=== PATIENT | male | born 1980 | race Two or more races ===

== ENCOUNTER 2017-09-12 18:30 | Emergency (ER) | payer SELFPAY | END 2017-09-12 20:20 | disposition home or self-care (01) | LOC: ER 18:30 | DX: S82.002A Unspecified fracture of left patella, initial encounter for closed fracture (principal); L03.116 Cellulitis of left lower limb; E11.9 Type 2 diabetes mellitus without complications; I10 Essential (primary) hypertension; X58.XXXA Exposure to other specified factors, initial encounter; Y93.89 Activity, other specified; Y92.89 Other specified places as the place of occurrence of the external cause; Y99.8 Other external cause status | CPT/HCPCS: 29505; 73564; 99284 ==

== ENCOUNTER 2017-09-16 20:54 | Emergency (ER) | payer SELFPAY ==
[2017-09-16 21:48] LABS: ADD MAN DIFF? NO
[2017-09-16 21:53] LABS: BASO % 0 % (0-3); EOS # 0.1 x10^3/uL (0.0-0.7); EOS % 1 % (0-3); HEMATOCRIT 42.4 % (39.0-53.0); LYMPH % 33 % (24-48); MEAN CORPUSCULAR HEMOGLOBIN 32 pg (25-35); MEAN CORPUSCULAR HGB CONC 35 g/dL (31-37); MEAN CORPUSCULAR VOLUME 89 fL (79-100); MONO # 0.5 x10^3/uL (0.0-1.1); MONO % 5 % (0-9); NEUT # 5.5 x10^3uL (1.8-7.7); NEUT % 60 % (31-73); PLATELET COUNT 271 x10^3/uL (140-400); RED BLOOD COUNT 4.77 x10^6/uL (4.30-5.70); RED CELL DISTRIBUTION WIDTH 12.4 % (11.5-14.5); WHITE BLOOD COUNT 9.1 x10^3/uL (4.0-11.0)
[2017-09-16 22:01] LABS: ANION GAP 13 (6-14); BLOOD UREA NITROGEN 14 mg/dL (8-26); BUN/CREATININE RATIO 11 (6-20); CALCIUM 8.4 mg/dL (8.5-10.1); CARBON DIOXIDE 23 mmol/L (21-32); CHLORIDE 102 mmol/L (98-107); CREATININE 1.3 mg/dL (0.7-1.3); GFR 62.1; GLUCOSE 280 mg/dL (70-99); POTASSIUM 4.1 mmol/L (3.5-5.1); SODIUM 138 mmol/L (136-145)
[2017-09-16 22:06] LABS: ALBUMIN 3.7 g/dL (3.4-5.0); ALBUMIN/GLOBULIN RATIO 0.9 (1.0-1.7); ALK PHOS 79 U/L (46-116); ALT (SGPT) 22 U/L (16-63); AST (SGOT) 19 U/L (15-37); TOTAL BILIRUBIN 0.3 mg/dL (0.2-1.0); TOTAL PROTEIN 7.6 g/dL (6.4-8.2)
== END 2017-09-16 22:30 | disposition home or self-care (01) ==
LOC: ER 20:54
DX: L03.116 Cellulitis of left lower limb (principal); E11.9 Type 2 diabetes mellitus without complications; I10 Essential (primary) hypertension
CPT/HCPCS: 36415; 80053; 85025; 99284

== ENCOUNTER 2018-05-14 17:53 | Inpatient (IN) | payer SELFPAY ==
[~2018-05-14] VITALS: Ht 182.9 cm; Wt 117.9 kg
[~2018-05-14 17:53] MED LIST: ATEN25TA PO; CEPH500T PO; GLIP10TA13 PO; IBUP-1060 PO; INSU100V31 SQ; Insulin Detemir SQ; LISI10TA PO; LISI1TAB3 PO; METF500T PO; NAPR500T8 PO; SULF1TAB24 PO
[2018-05-14] MEDS ORDERED: MORPHINE SULFATE 4 MG/ML VIAL. IV ONE (18:45)
[2018-05-14] MEDS ORDERED: FAMOTIDINE 20 MG/2 ML VIAL IVP ONE (18:45)
[2018-05-14] MEDS ORDERED: IV NORMAL SALINE 1000ML BAG 1,000 ML IV ONE ×2 (18:45→20:15)
[2018-05-14] MEDS ORDERED: ASPIRIN 325 MG TABLET PO ONE (18:45)
[2018-05-14 19:05] LABS: BASO % 0 % (0-3); EOS # 0.1 x10^3/uL (0.0-0.7); EOS % 1 % (0-3); HEMATOCRIT 50.6 % (39.0-53.0); HEMOGLOBIN 17.6 g/dL (13.0-17.5); LYMPH # 3.3 x10^3/uL (1.0-4.8); LYMPH % 34 % (24-48); MEAN CORPUSCULAR HEMOGLOBIN 31 pg (25-35); MEAN CORPUSCULAR HGB CONC 35 g/dL (31-37); MEAN CORPUSCULAR VOLUME 88 fL (79-100); MONO # 0.7 x10^3/uL (0.0-1.1); MONO % 7 % (0-9); NEUT # 5.6 x10^3uL (1.8-7.7); NEUT % 57 % (31-73); PLATELET COUNT 252 x10^3/uL (140-400); RED BLOOD COUNT 5.73 x10^6/uL (4.30-5.70); RED CELL DISTRIBUTION WIDTH 12.8 % (11.5-14.5); WHITE BLOOD COUNT 9.8 x10^3/uL (4.0-11.0)
[2018-05-14 19:14] LABS: PROTHROMBIN TIME PATIENT 12.4 SEC (11.7-14.0)
[2018-05-14 19:17] LABS: CALCIUM 9.2 mg/dL (8.5-10.1); CREATININE 1.5 mg/dL (0.7-1.3); GFR 52.4; POTASSIUM 3.3 mmol/L (3.5-5.1)
[2018-05-14 19:19] LABS: D-DIMER 0.27 ug/mlFEU (0.00-0.50)
[2018-05-14 19:23] LABS: ALBUMIN 3.8 g/dL (3.4-5.0); ALBUMIN/GLOBULIN RATIO 0.9 (1.0-1.7); MAGNESIUM 1.7 mg/dL (1.8-2.4); TOTAL BILIRUBIN 0.7 mg/dL (0.2-1.0); TOTAL PROTEIN 8.1 g/dL (6.4-8.2)
[2018-05-14 19:30] LABS: BILIRUBIN,URINE NEGATIVE (NEG); CLARITY,URINE CLEAR; COLOR,URINE YELLOW; NITRITE,URINE NEGATIVE (NEG); PH,URINE 5.5; PROTEIN,URINE >=300 mg/dL (NEG-TRACE); UROBILINOGEN,URINE 0.2 mg/dL (0.2 mg/dL)
[2018-05-14 19:33] LABS: CREATINE KINASE 75 U/L (39-308)
[2018-05-14 19:37] LABS: BARBITURATES NEG (NEG); BENZODIAZEPINES NEG (NEG); CANNABINOIDS NEG (NEG); COCAINE NEG (NEG); METHADONE NEG (NEG); OPIATES POS (NEG); PHENCYCLIDINE NEG (NEG)
[2018-05-14 19:40] LABS: BACTERIA,URINE FEW /HPF (0-FEW); SQUAMOUS EPITHELIAL CELL,UR FEW /LPF
[2018-05-14 19:46] LABS: AMPHETAMINE/METHAMPHETAMINE NEG (NEG)
[2018-05-14] MEDS ORDERED: POTASSIUM CHLORIDE 20 MEQ TABLET.ER. PO ONE (20:15)
[2018-05-14] MEDS ORDERED: INSULIN REGULAR 100 UNIT/ML 3ML VIAL. IV ONE (20:15)
[2018-05-14] MEDS ORDERED: ACETAMINOPHEN 500 MG TABLET PO ONE (21:00)
--- NOTE | 2018-05-14 21:35 | RAD ---
CT ABDOMEN PELVIS WO CONTRAST Indication: Hematuria. Exposure: One or more of the following individualized dose reduction techniques were utilized for this examination: 1. Automated exposure control 2. Adjustment of the mA and/or kV according to patient size 3. Use of iterative reconstruction technique. Comparison: None are available. Contrast: No intravenous contrast given. No oral contrast per request. Evaluation of solid viscera, bowel and vasculature is compromised by the noncontrast technique. Findings: Lung bases are clear. Liver and spleen grossly unremarkable. Pancreas unremarkable. No adrenal mass. No evidence of hydronephrosis or renal calculus. No evidence of ureteric calculus or dilatation. The urinary bladder appears unremarkable. No calcified gallstone. Aorta nonaneurysmal. No definite significant lymph node enlargement. No evidence of bowel obstruction. No evidence of acute colitis. The appendix appears normal. No evidence of significant ascites or evidence of pneumoperitoneum. No evidence of a pelvic mass. Vertebral body height and alignment are intact. IMPRESSION: No evidence of urolithiasis or obstruction. No acute findings. Electronically signed by: Herbert Hernandez MD (05/14/2018 9:31 PM) [facility]
--- NOTE | 2018-05-15 01:08 | PHYS DOC ---
Past Medical History Past Medical History: Diabetes-Type II, Hypertension Past Surgical History: Other Additional Past Surgical Histo: R knee scoped Alcohol Use: Occasionally Drug Use: None Adult General Chief Complaint Chief Complaint: CHEST PAIN HPI HPI Patient is a 37 year old male with history of diabetes type 2, hypertension, who presents to the ED today complaining of a sharp 5 out of 10 intermittent substernal chest pain radiating to the left side of the neck that has been going on for the last 1 week. Patient denies anything exacerbating or making the pain better. He is also complaining of a cough. Patient is also complaining of nausea, vomiting, diarrhea and generalized mild abdominal pain since this morning. Denies any fever. Patient states he does not take his diabetes medicine anymore because he has not followed up with her PCP Review of Systems Review of Systems Constitutional: Denies fever or chills [] Eyes: Denies change in visual acuity, redness, or eye pain [] HENT: Denies nasal congestion or sore throat [] Respiratory: Reports cough, denies shortness of breath [] Cardiovascular: Reports chest pain GI: Reports abdominal pain, nausea, vomiting, diarrhea : Denies dysuria or hematuria [] Musculoskeletal: Denies back pain or joint pain [] Integument: Denies rash or skin lesions [] Neurologic: Denies headache, focal weakness or sensory changes [] All other systems were reviewed and found to be within normal limits, except as documented in this note. Current Medications Current Medications Current Medications Medications (Trade) Dose Ordered Sig/Hawa Start Time Stop Time Status Last Admin Dose Admin Acetaminophen (Tylenol) 1,000 mg 1X ONCE 05/14/18 21:00 05/14/18 21:01 DC 05/14/18 21:25 1,000 MG Aspirin (Emmanuel Aspirin) 325 mg 1X ONCE 05/14/18 18:45 05/14/18 18:46 DC 05/14/18 18:57 325 MG Famotidine (Pepcid Vial) 20 mg 1X ONCE 05/14/18 18:45 05/14/18 18:46 DC 05/14/18 18:58 20 MG Insulin Human Regular (HumuLIN R VIAL) 4 unit 1X ONCE 05/14/18 20:15 05/14/18 20:16 DC 05/14/18 20:46 4 UNIT Morphine Sulfate (Morphine Sulfate) 4 mg 1X ONCE 05/14/18 18:45 05/14/18 18:46 DC 05/14/18 18:59 4 MG Potassium Chloride (Klor-Con) 40 meq 1X ONCE 05/14/18 20:15 05/14/18 20:16 DC 05/14/18 20:49 40 MEQ Sodium Chloride 1,000 ml @ 1,000 mls/hr 1X ONCE 05/14/18 20:15 05/14/18 21:14 DC 05/14/18 20:48 1,000 MLS/HR Allergies Allergies Allergies Coded Allergies Type Severity Reaction Last Updated Verified No Known Drug Allergies 03/15/14 No Physical Exam Physical Exam Constitutional: Well developed, well nourished, no acute distress, non-toxic appearance. [] HENT: Normocephalic, atraumatic, bilateral external ears normal, oropharynx moist, no oral exudates, nose normal. [] Eyes: PERRLA, EOMI, conjunctiva normal, no discharge. [] Neck: Normal range of motion, no tenderness, supple, no stridor. [] Cardiovascular:Heart rate regular rhythm, no murmur [] Lungs & Thorax: Bilateral breath sounds clear to auscultation [] Abdomen: Bowel sounds normal, soft, no tenderness, no masses, no pulsatile masses. [] Skin: Warm, dry, no erythema, no rash. [] Back: No tenderness, no CVA tenderness. [] Extremities: No tenderness, no cyanosis, no clubbing, ROM intact, no edema. [] Neurologic: Alert and oriented X 3, normal motor function, normal sensory function, no focal deficits noted. [] Psychologic: Affect normal, judgement normal, mood normal. [] Current Patient Data Vital Signs Vital Signs Date Time Temp Pulse Resp B/P (MAP) Pulse Ox O2 Delivery O2 Flow Rate FiO2 05/14/18 23:30 87 19 157/111 (126) 98 Room Air 05/14/18 18:40 97.8 97.8 Lab Values Laboratory Tests Test 05/14/18 18:48 05/14/18 19:17 05/14/18 20:41 05/14/18 23:18 White Blood Count 9.8 x10^3/uL (4.0-11.0) Red Blood Count 5.73 x10^6/uL (4.30-5.70) H Hemoglobin 17.6 g/dL (13.0-17.5) H Hematocrit 50.6 % (39.0-53.0) Mean Corpuscular Volume 88 fL (79-100) Mean Corpuscular Hemoglobin 31 pg (25-35) Mean Corpuscular Hemoglobin Concent 35 g/dL (31-37) Red Cell Distribution Width 12.8 % (11.5-14.5) Platelet Count 252 x10^3/uL (140-400) Neutrophils (%) (Auto) 57 % (31-73) Lymphocytes (%) (Auto) 34 % (24-48) Monocytes (%) (Auto) 7 % (0-9) Eosinophils (%) (Auto) 1 % (0-3) Basophils (%) (Auto) 0 % (0-3) Neutrophils # (Auto) 5.6 x10^3uL (1.8-7.7) Lymphocytes # (Auto) 3.3 x10^3/uL (1.0-4.8) Monocytes # (Auto) 0.7 x10^3/uL (0.0-1.1) Eosinophils # (Auto) 0.1 x10^3/uL (0.0-0.7) Basophils # (Auto) 0.0 x10^3/uL (0.0-0.2) Prothrombin Time 12.4 SEC (11.7-14.0) Prothrombin Time INR 1.0 (0.8-1.1) D-Dimer (Reena) 0.27 ug/mlFEU (0.00-0.50) Sodium Level 135 mmol/L (136-145) L Potassium Level 3.3 mmol/L (3.5-5.1) L Chloride Level 95 mmol/L (98-107) L Carbon Dioxide Level 26 mmol/L (21-32) Anion Gap 14 (6-14) Blood Urea Nitrogen 23 mg/dL (8-26) Creatinine 1.5 mg/dL (0.7-1.3) H Estimated GFR (Cockcroft-Gault) 52.4 BUN/Creatinine Ratio 15 (6-20) Glucose Level 289 mg/dL (70-99) H Calcium Level 9.2 mg/dL (8.5-10.1) Magnesium Level 1.7 mg/dL (1.8-2.4) L Total Bilirubin 0.7 mg/dL (0.2-1.0) Aspartate Amino Transferase (AST) 19 U/L (15-37) Alanine Aminotransferase (ALT) 27 U/L (16-63) Alkaline Phosphatase 89 U/L (46-116) Creatine Kinase 75 U/L (39-308) Creatine Kinase MB (Mass) < 0.5 ng/mL (0.0-3.6) Creatine Kinase MB Relative Index % (0-4) Troponin I Quantitative 0.021 ng/mL (0.000-0.055) BM-Vqp-S-Type Natriuretic Peptide 30 pg/mL (0-124) Total Protein 8.1 g/dL (6.4-8.2) Albumin 3.8 g/dL (3.4-5.0) Albumin/Globulin Ratio 0.9 (1.0-1.7) L Lipase 136 U/L (73-393) Thyroid Stimulating Hormone (TSH) 2.216 uIU/mL (0.358-3.74) Urine Collection Type Unknown Urine Color Yellow Urine Clarity Clear Urine pH 5.5 Urine Specific [place] >=1.030 Urine Protein >=300 mg/dL (NEG-TRACE) Urine Glucose (UA) >=1000 mg/dL (NEG) Urine Ketones (Stick) Trace mg/dL (NEG) Urine Blood Moderate (NEG) Urine Nitrite Negative (NEG) Urine Bilirubin Negative (NEG) Urine Urobilinogen Dipstick 0.2 mg/dL (0.2 mg/dL) Urine Leukocyte Esterase Negative (NEG) Urine RBC 11-20 /HPF (0-2) Urine WBC 1-4 /HPF (0-4) Urine Squamous Epithelial Cells Few /LPF Urine Bacteria Few /HPF (0-FEW) Urine Mucus Marked /LPF Urine Opiates Screen Pos (NEG) Urine Methadone Screen Neg (NEG) Urine Barbiturates Neg (NEG) Urine Phencyclidine Screen Neg (NEG) Urine Amphetamine/Methamphetamine Neg (NEG) Urine Benzodiazepines Screen Neg (NEG) Urine Cocaine Screen Neg (NEG) Urine Cannabinoids Screen Neg (NEG) Urine Ethyl Alcohol Neg (NEG) Glucose (Fingerstick) 234 mg/dL (70-99) H 241 mg/dL (70-99) H Laboratory Tests 05/14/18 18:48 Laboratory Tests 05/14/18 18:48 EKG EKG [] Radiology/Procedures Radiology/Procedures [] Course & Med Decision Making Course & Med Decision Making Pertinent Labs and Imaging studies reviewed. (See chart for details) This is a 37-year-old male patient with history of diabetes type 2, hypertension , presenting to the ED today complaining of chest pain for one week, abdominal pain nausea vomiting and diarrhea that began today. CT of the abdomen and pelvic is negative for any acute findings. EKG was negative, troponin is negative, d-dimer is normal. CMP with glucose of 289, creatinine 1.5 BUN 23. Patient denies any previous history of renal failure. Heart score 2 Patient will be admitted. IV fluids were started. Insulin sliding scale as ordered. Dr. Benitez will give report to Dr. Pritchett in [place] Disclaimer Dragon Disclaimer This electronic medical record was generated, in whole or in part, using a voice recognition dictation system. Departure Departure Impression: Primary Impression: Chest pain Additional Impressions: Hyperglycemia Acute on chronic renal failure Disposition: ADMITTED INPATIENT Condition: STABLE Referrals: [facility] TECHNICIAN (PCP) Problem Qualifiers Primary Impression: Chest pain Chest pain type: unspecified Qualified Codes: R07.9 - Chest pain, unspecified Additional Impressions: Acute on chronic renal failure Acute renal failure type: unspecified Chronic kidney disease stage: unspecified stage Qualified Codes: N17.9 - Acute kidney failure, unspecified; N18.9 - Chronic kidney disease, unspecified GERALD ROBLERO APRN May 15, 2018 01:08
[2018-05-15] MEDS ORDERED: ACETAMINOPHEN 325 MG TABLET. PO PRN (01:30)
[2018-05-15] MEDS ORDERED: NITROGLYCERIN SUBLINGUAL 0.4 MG BOTTLE OF 25. SL PRN (01:30)
[2018-05-15] MEDS ORDERED: DEXTROSE 50% 25 GM / 50ML DISP.SYRIN. IV PRN (01:30)
[2018-05-15] MEDS ORDERED: MORPHINE SULFATE 4 MG/ML VIAL. IV PRN (01:30)
[2018-05-15] MEDS ORDERED: ONDANSETRON PF 4 MG/2 ML VIAL. IV PRN (01:30)
[2018-05-15] MEDS ORDERED: IV NORMAL SALINE 1000ML BAG 1,000 ML IV ONE (01:30)
--- NOTE | 2018-05-15 01:37 | NUR ---
The patient, JUANIS BYRD, 37 y/o, M admitted by AIDA ZULUAGA MD, was given written information regarding hospital policies, unit procedures and contact persons. Valuables were checked and left with him.
[2018-05-15 02:00] VITALS: BP 151/108
[2018-05-15 07:00] VITALS: BP 157/116
[2018-05-15] MEDS ORDERED: LISI-334 PO (07:24)
[2018-05-15] MEDS ORDERED: IBUP-1060 PO (07:24)
--- NOTE | 2018-05-15 07:27 | EKG ---
[facility] [address] [place] [address] Test Date: 2018-05-14 Test Time: 18:02:38 Pat Name: JUANIS BYRD Department: Room: 526 1 Gender: M Chief Lifestyle Officer: : 1980 Requested By: GERALD ROBLERO Order Number: [id number] Reading MD: Nader Purvis MD Measurements Intervals [place] Rate: 98 P: 38 IA: 158 QRS: 12 QRSD: 114 T: 147 QT: 356 QTc: 456 Interpretive Statements SINUS RHYTHM NON-SPECIFIC ST/T CHANGES Electronically Signed On 05-19-2018 9:47:09 [employer] by Nader Purvis MD
[2018-05-15] MEDS: INSULIN LISPRO 300 UNITS/3 ML INSULN.PEN. SQ SCH ×3 (08:00→16:56)
[2018-05-15 11:00] VITALS: BP 147/107
--- NOTE | 2018-05-15 14:24 | PDOC2 ---
CONSULT Date of Consult Date of Consult DATE: 05/15/18 TIME: 14:16 Reason for Consult Reason for Consult: Chest pain Referring Physician Referring Physician: Dr. Pritchett Identification/Chief Complaint Chief Complaint Chest pain Source Source: Chart review, Patient History of Present Illness Reason for Visit: The patient is a 37-year-old obese male who was seen in the emergency room for episodes of substernal chest pain over the past week. This appeared to be mildly increased with exertion. Patient also had issues with mild abdominal pain. Initial workup included a mildly elevated troponin at 0.051 and in EKG with nonspecific ST segment changes that are somewhat suspicious for ischemia. Additionally the patient has diabetes but has not been taking his medications. Hemoglobin A1c is elevated 11.6. Overnight the patient has been feeling better. CT scan of the abdomen and pelvis that showed no acute changes. He continues to have mild chest discomfort today. Past Medical History Cardiovascular: HTN, Hyperlipidemia Endocrine: Diabetes Past Surgical History Past Surgical History: No pertinent history Family History Family History: Hypertension Social History No ALCOHOL: rare Current Problem List Problem List Problems Medical Problems: (1) Acute on chronic renal failure Status: Acute (2) Hyperglycemia Status: Acute Current Medications Current Medications Current Medications Aspirin (Emmanuel Aspirin) 325 mg 1X ONCE PO Last administered on 05/14/18at 18:57 ; Start 05/14/18 at 18:45; Stop 05/14/18 at 18:46; Status DC Morphine Sulfate (Morphine Sulfate) 4 mg 1X ONCE IV Last administered on 18:59; Start 05/14/18 at 18:45; Stop 05/14/18 at 18:46; Status DC Famotidine (Pepcid Vial) 20 mg 1X ONCE IVP Last administered on 05/14/18at 18:58 ; Start 05/14/18 at 18:45; Stop 05/14/18 at 18:46; Status DC Sodium Chloride 1,000 ml @ 1,000 mls/hr 1X ONCE IV Last administered on at 18:53; Start 05/14/18 at 18:45; Stop 05/14/18 at 19:44; Status DC Sodium Chloride 1,000 ml @ 1,000 mls/hr 1X ONCE IV Last administered on at 20:48; Start 05/14/18 at 20:15; Stop 05/14/18 at 21:14; Status DC Insulin Human Regular (HumuLIN R VIAL) 4 unit 1X ONCE IV Last administered on 05/14/18at 20:46; Start 05/14/18 at 20:15; Stop 05/14/18 at 20:16; Status DC Potassium Chloride (Klor-Con) 40 meq 1X ONCE PO Last administered on 05/14/18at 20:49; Start 05/14/18 at 20:15; Stop 05/14/18 at 20:16; Status DC Acetaminophen (Tylenol) 1,000 mg 1X ONCE PO Last administered on 05/14/18at 21: 25; Start 05/14/18 at 21:00; Stop 05/14/18 at 21:01; Status DC Ondansetron HCl (Zofran) 4 mg PRN Q8HRS PRN IV NAUSEA/VOMITING; Start 05/15/18 at 01:30; Stop 05/16/18 at 01:29 Morphine Sulfate (Morphine Sulfate) 2 mg PRN Q2HR PRN IV PAIN; Start 05/15/18 at 01:30; Stop 05/16/18 at 01:29 Acetaminophen (Tylenol) 650 mg PRN Q4HRS PRN PO FEVER Last administered on 05/15at 02:33; Start 05/15/18 at 01:30; Stop 05/16/18 at 01:29 Nitroglycerin (Nitrostat) 0.4 mg PRN Q5MIN PRN SL CHEST PAIN; Start 05/15/18 at 01:30; Stop 05/16/18 at 01:29 Insulin Human Lispro (HumaLOG) 0-5 UNITS TIDWMEALS SQ Last administered on 05/15at 12:04; Start 05/15/18 at 08:00 Dextrose (Dextrose 50%-Water Syringe) 12.5 gm PRN Q15MIN PRN IV SEE COMMENTS; Start 05/15/18 at 01:30 Sodium Chloride 1,000 ml @ 125 mls/hr 1X ONCE IV Last administered on at 02:31; Start 05/15/18 at 01:30; Stop 05/15/18 at 09:29; Status DC Lisinopril (Prinivil) 20 mg DAILY PO ; Start 05/15/18 at 14:00 Active Scripts Active Glucophage (Metformin Hcl) 500 Mg Tablet 500 Mg PO BIDWMEALS Reported Ibuprofen 800 Mg Tablet 800 Mg PO PRN Q8HRS PRN Lisinopril 20 Mg Tablet 1 Tab PO DAILY Allergies Allergies: Coded Allergies: No Known Drug Allergies (Unverified , 03/15/14) ROS General: YES: Fatigue Respiratory: YES: SOB with excertion Cardiovascular: yes Chest Pain Physical Exam General: mild distress HEENT: Atraumatic Lungs: Clear to auscultation Heart: Regular rate Abdomen: Normal bowel sounds Vitals VITALS Vital Signs Date Time Temp Pulse Resp B/P (MAP) Pulse Ox O2 Delivery O2 Flow Rate FiO2 05/15/18 11:00 97.9 80 17 147/107 (120) 96 Room Air 97.9 Labs Labs Laboratory Tests Test 05/14/18 18:48 05/14/18 19:17 05/14/18 20:41 05/14/18 23:18 White Blood Count 9.8 x10^3/uL (4.0-11.0) Red Blood Count 5.73 x10^6/uL (4.30-5.70) Hemoglobin 17.6 g/dL (13.0-17.5) Hematocrit 50.6 % (39.0-53.0) Mean Corpuscular Volume 88 fL (79-100) Mean Corpuscular Hemoglobin 31 pg (25-35) Mean Corpuscular Hemoglobin Concent 35 g/dL (31-37) Red Cell Distribution Width 12.8 % (11.5-14.5) Platelet Count 252 x10^3/uL (140-400) Neutrophils (%) (Auto) 57 % (31-73) Lymphocytes (%) (Auto) 34 % (24-48) Monocytes (%) (Auto) 7 % (0-9) Eosinophils (%) (Auto) 1 % (0-3) Basophils (%) (Auto) 0 % (0-3) Neutrophils # (Auto) 5.6 x10^3uL (1.8-7.7) Lymphocytes # (Auto) 3.3 x10^3/uL (1.0-4.8) Monocytes # (Auto) 0.7 x10^3/uL (0.0-1.1) Eosinophils # (Auto) 0.1 x10^3/uL (0.0-0.7) Basophils # (Auto) 0.0 x10^3/uL (0.0-0.2) Prothrombin Time 12.4 SEC (11.7-14.0) Prothromb Time International Ratio 1.0 (0.8-1.1) D-Dimer (Reena) 0.27 ug/mlFEU (0.00-0.50) Sodium Level 135 mmol/L (136-145) Potassium Level 3.3 mmol/L (3.5-5.1) Chloride Level 95 mmol/L (98-107) Carbon Dioxide Level 26 mmol/L (21-32) Anion Gap 14 (6-14) Blood Urea Nitrogen 23 mg/dL (8-26) Creatinine 1.5 mg/dL (0.7-1.3) Estimated GFR (Cockcroft-Gault) 52.4 BUN/Creatinine Ratio 15 (6-20) Glucose Level 289 mg/dL (70-99) Calcium Level 9.2 mg/dL (8.5-10.1) Magnesium Level 1.7 mg/dL (1.8-2.4) Total Bilirubin 0.7 mg/dL (0.2-1.0) Aspartate Amino Transf (AST/SGOT) 19 U/L (15-37) Alanine Aminotransferase (ALT/SGPT) 27 U/L (16-63) Alkaline Phosphatase 89 U/L (46-116) Creatine Kinase 75 U/L (39-308) Creatine Kinase MB (Mass) < 0.5 ng/mL (0.0-3.6) Creatine Kinase MB Relative Index % (0-4) Troponin I Quantitative 0.021 ng/mL (0.000-0.055) BO-Npx-Z-Type Natriuretic Peptide 30 pg/mL (0-124) Total Protein 8.1 g/dL (6.4-8.2) Albumin 3.8 g/dL (3.4-5.0) Albumin/Globulin Ratio 0.9 (1.0-1.7) Lipase 136 U/L (73-393) Thyroid Stimulating Hormone (TSH) 2.216 uIU/mL (0.358-3.74) Urine Collection Type Unknown Urine Color Yellow Urine Clarity Clear Urine pH 5.5 Urine Specific [place] >=1.030 Urine Protein >=300 mg/dL (NEG-TRACE) Urine Glucose (UA) >=1000 mg/dL (NEG) Urine Ketones (Stick) Trace mg/dL (NEG) Urine Blood Moderate (NEG) Urine Nitrite Negative (NEG) Urine Bilirubin Negative (NEG) Urine Urobilinogen Dipstick 0.2 mg/dL (0.2 mg/dL) Urine Leukocyte Esterase Negative (NEG) Urine RBC 11-20 /HPF (0-2) Urine WBC 1-4 /HPF (0-4) Urine Squamous Epithelial Cells Few /LPF Urine Bacteria Few /HPF (0-FEW) Urine Mucus Marked /LPF Urine Opiates Screen Pos (NEG) Urine Methadone Screen Neg (NEG) Urine Barbiturates Neg (NEG) Urine Phencyclidine Screen Neg (NEG) Urine Amphetamine/Methamphetamine Neg (NEG) Urine Benzodiazepines Screen Neg (NEG) Urine Cocaine Screen Neg (NEG) Urine Cannabinoids Screen Neg (NEG) Urine Ethyl Alcohol Neg (NEG) Glucose (Fingerstick) 234 mg/dL (70-99) 241 mg/dL (70-99) Test 05/15/18 01:30 05/15/18 05:40 05/15/18 07:52 05/15/18 11:28 Troponin I Quantitative 0.034 ng/mL (0.000-0.055) 0.051 ng/mL (0.000-0.055) Glucose (Fingerstick) 214 mg/dL (70-99) 190 mg/dL (70-99) Laboratory Tests Test 05/14/18 18:48 05/14/18 19:17 05/14/18 20:41 05/14/18 23:18 White Blood Count 9.8 x10^3/uL (4.0-11.0) Red Blood Count 5.73 x10^6/uL (4.30-5.70) Hemoglobin 17.6 g/dL (13.0-17.5) Hematocrit 50.6 % (39.0-53.0) Mean Corpuscular Volume 88 fL (79-100) Mean Corpuscular Hemoglobin 31 pg (25-35) Mean Corpuscular Hemoglobin Concent 35 g/dL (31-37) Red Cell Distribution Width 12.8 % (11.5-14.5) Platelet Count 252 x10^3/uL (140-400) Neutrophils (%) (Auto) 57 % (31-73) Lymphocytes (%) (Auto) 34 % (24-48) Monocytes (%) (Auto) 7 % (0-9) Eosinophils (%) (Auto) 1 % (0-3) Basophils (%) (Auto) 0 % (0-3) Neutrophils # (Auto) 5.6 x10^3uL (1.8-7.7) Lymphocytes # (Auto) 3.3 x10^3/uL (1.0-4.8) Monocytes # (Auto) 0.7 x10^3/uL (0.0-1.1) Eosinophils # (Auto) 0.1 x10^3/uL (0.0-0.7) Basophils # (Auto) 0.0 x10^3/uL (0.0-0.2) Prothrombin Time 12.4 SEC (11.7-14.0) Prothromb Time International Ratio 1.0 (0.8-1.1) D-Dimer (Reena) 0.27 ug/mlFEU (0.00-0.50) Sodium Level 135 mmol/L (136-145) Potassium Level 3.3 mmol/L (3.5-5.1) Chloride Level 95 mmol/L (98-107) Carbon Dioxide Level 26 mmol/L (21-32) Anion Gap 14 (6-14) Blood Urea Nitrogen 23 mg/dL (8-26) Creatinine 1.5 mg/dL (0.7-1.3) Estimated GFR (Cockcroft-Gault) 52.4 BUN/Creatinine Ratio 15 (6-20) Glucose Level 289 mg/dL (70-99) Calcium Level 9.2 mg/dL (8.5-10.1) Magnesium Level 1.7 mg/dL (1.8-2.4) Total Bilirubin 0.7 mg/dL (0.2-1.0) Aspartate Amino Transf (AST/SGOT) 19 U/L (15-37) Alanine Aminotransferase (ALT/SGPT) 27 U/L (16-63) Alkaline Phosphatase 89 U/L (46-116) Creatine Kinase 75 U/L (39-308) Creatine Kinase MB (Mass) < 0.5 ng/mL (0.0-3.6) Creatine Kinase MB Relative Index % (0-4) Troponin I Quantitative 0.021 ng/mL (0.000-0.055) WO-Mwf-T-Type Natriuretic Peptide 30 pg/mL (0-124) Total Protein 8.1 g/dL (6.4-8.2) Albumin 3.8 g/dL (3.4-5.0) Albumin/Globulin Ratio 0.9 (1.0-1.7) Lipase 136 U/L (73-393) Thyroid Stimulating Hormone (TSH) 2.216 uIU/mL (0.358-3.74) Urine Collection Type Unknown Urine Color Yellow Urine Clarity Clear Urine pH 5.5 Urine Specific [place] >=1.030 Urine Protein >=300 mg/dL (NEG-TRACE) Urine Glucose (UA) >=1000 mg/dL (NEG) Urine Ketones (Stick) Trace mg/dL (NEG) Urine Blood Moderate (NEG) Urine Nitrite Negative (NEG) Urine Bilirubin Negative (NEG) Urine Urobilinogen Dipstick 0.2 mg/dL (0.2 mg/dL) Urine Leukocyte Esterase Negative (NEG) Urine RBC 11-20 /HPF (0-2) Urine WBC 1-4 /HPF (0-4) Urine Squamous Epithelial Cells Few /LPF Urine Bacteria Few /HPF (0-FEW) Urine Mucus Marked /LPF Urine Opiates Screen Pos (NEG) Urine Methadone Screen Neg (NEG) Urine Barbiturates Neg (NEG) Urine Phencyclidine Screen Neg (NEG) Urine Amphetamine/Methamphetamine Neg (NEG) Urine Benzodiazepines Screen Neg (NEG) Urine Cocaine Screen Neg (NEG) Urine Cannabinoids Screen Neg (NEG) Urine Ethyl Alcohol Neg (NEG) Glucose (Fingerstick) 234 mg/dL (70-99) 241 mg/dL (70-99) Test 05/15/18 01:30 05/15/18 05:40 05/15/18 07:52 05/15/18 11:28 Troponin I Quantitative 0.034 ng/mL (0.000-0.055) 0.051 ng/mL (0.000-0.055) Glucose (Fingerstick) 214 mg/dL (70-99) 190 mg/dL (70-99) Images Images CT scan of the abdomen and pelvis shows no acute changes. Assessment/Plan Assessment/Plan 1. Chest pain. The patient reports one week of episodic chest discomfort as above. Pain has significantly improved but he still has occasional episodes. His EKG shows ST segment changes that are nonspecific but are suggestive of possible ischemia. Troponin is 0.051. He has multiple risk factors including hypertension, poorly controlled diabetes and probable hyperlipidemia. In this setting will continue medical treatment. We'll proceed with MPI testing to exclude significant coronary artery disease. 2. Hypertension. Blood pressures under better control. Will continue to monitor and adjust medications as needed. 3. Diabetes mellitus. Patient has been noncompliant with his medications. He is poorly controlled. As per the primary service. 4. Elevated creatinine at 1.5. Will continue to monitor. 5. Obesity. Discussed with the patient. Thank you for allowing us to participate in the care of your patient. SRINIVAS CURTIS MD May 15, 2018 14:23
[2018-05-15] MEDS: LISINOPRIL 20 MG TABLET PO SCH (14:31)
[2018-05-15 15:00] VITALS: BP 154/102
--- NOTE | 2018-05-15 15:54 | PDOC1 ---
History and Physical Date of Admission Date of Admission 05/15/2018 Identification/Chief Complaint Chief Complaint My chest hurts Problems: (1) Chest pain Source Source: Chart review, Patient History of Present Illness History of Present Illness Patient is a 37-year-old gentleman with classical history of hypertension diabetes who was in his usual state of health until the day prior to his admission when he complained of worsening chest discomfort. Story dates back 1 week when while watching TV the patient presented precordial discomfort. The patient describes the pain as a sharp sensation 7 out of 10 in intensity that has been intermittent and lasting less than 10 minutes patient denies diaphoresis no sensation of impending doom no nausea no vomiting on previous events but the day prior he did percent one episode of emesis along with chest discomfort reason why he decided to come to the emergency department for further evaluation treatment. His workup in the emergency department has yielded negative results. Given his risk factors patient is being admitted for further risk stratification and further evaluation. At the time of my note the patient is in no apparent distress but nevertheless he is somewhat aggravated that he has not received his antihypertensive therapy. The patient does acknowledge that he has been eating more salt than usual and see his blood pressure has been higher than normal. He only takes one agent for hypertension reassurance has been provided and the plan of care explained in detail to the patient. No recent cold-like symptoms infections cough sputum production or pleurisy was reported no trauma to the chest Past Medical History Cardiovascular: HTN, Hyperlipidemia Endocrine: Diabetes Past Surgical History Past Surgical History: No pertinent history Family History Family History: Hypertension Social History Smoke: No ALCOHOL: rare Current Problem List Problem List Problems Medical Problems: (1) Acute on chronic renal failure Status: Acute (2) Hyperglycemia Status: Acute Current Medications Current Medications Current Medications Medications (Trade) Dose Ordered Sig/Hawa Start Time Stop Time Status Last Admin Dose Admin Acetaminophen (Tylenol) 650 mg PRN Q4HRS PRN 05/15/18 01:30 05/16/18 01:29 05/15/18 02:33 650 MG Aspirin (Emmanuel Aspirin) 325 mg 1X ONCE 05/14/18 18:45 05/14/18 18:46 DC 05/14/18 18:57 325 MG Dextrose (Dextrose 50%-Water Syringe) 12.5 gm PRN Q15MIN PRN 05/15/18 01:30 Famotidine (Pepcid Vial) 20 mg 1X ONCE 05/14/18 18:45 05/14/18 18:46 DC 05/14/18 18:58 20 MG Insulin Human Lispro (HumaLOG) 0-5 UNITS TIDWMEALS 05/15/18 08:00 05/15/18 12:04 2 UNITS Insulin Human Regular (HumuLIN R VIAL) 4 unit 1X ONCE 05/14/18 20:15 05/14/18 20:16 DC 05/14/18 20:46 4 UNIT Lisinopril (Prinivil) 20 mg DAILY 05/15/18 14:00 05/15/18 14:31 20 MG Morphine Sulfate (Morphine Sulfate) 2 mg PRN Q2HR PRN 05/15/18 01:30 05/16/18 01:29 Nitroglycerin (Nitrostat) 0.4 mg PRN Q5MIN PRN 05/15/18 01:30 05/16/18 01:29 Ondansetron HCl (Zofran) 4 mg PRN Q8HRS PRN 05/15/18 01:30 05/16/18 01:29 Potassium Chloride (Klor-Con) 40 meq 1X ONCE 05/14/18 20:15 05/14/18 20:16 DC 05/14/18 20:49 40 MEQ Sodium Chloride 1,000 ml @ 125 mls/hr 1X ONCE 05/15/18 01:30 05/15/18 09:29 DC 05/15/18 02:31 125 MLS/HR Allergies Allergies Allergies Coded Allergies Type Severity Reaction Last Updated Verified No Known Drug Allergies 03/15/14 No ROS Review of System CONSTITUTIONAL: No fever or chills EYES: No recent changes SKIN: No rash or itching CARDIOVASCULAR: No chest pain, syncope, palpitations, or edema RESPIRATORY: No SOB or cough GASTROINTESTINAL: No nausea, vomiting or abdominal pain NEUROLOGICAL: No headaches or weakness ENDOCRINE: No cold or heat intolerance GENITOURINARY: No urgency or frequency of urination MUSCULOSKELETAL: No back pain or joint pain LYMPHATICS: No enlarged lymph nodes PSYCHIATRIC: No anxiety or depression Physical Exam Physical Exam GEN.: No apparent distress. Alert and oriented. HEENT: Head is normocephalic, atraumatic NECK: Supple. LUNGS: Clear to auscultation. HEART: RRR, S1, S2 present. Peripheral pulses intact ABDOMEN: Soft, nontender. Positive bowel sounds. EXTREMITIES: Without any cyanosis. NEUROLOGIC: Normal speech, normal tone PSYCHIATRIC: Normal affect, normal mood. SKIN: No ulcerations Vitals Vitals Vital Signs Date Time Temp Pulse Resp B/P (MAP) Pulse Ox O2 Delivery O2 Flow Rate FiO2 05/15/18 15:00 97.5 74 18 154/102 (119) 96 Room Air 97.5 Labs Labs Laboratory Tests Test 05/14/18 18:48 05/14/18 19:17 05/14/18 20:41 05/14/18 23:18 White Blood Count 9.8 x10^3/uL (4.0-11.0) Red Blood Count 5.73 x10^6/uL (4.30-5.70) Hemoglobin 17.6 g/dL (13.0-17.5) Hematocrit 50.6 % (39.0-53.0) Mean Corpuscular Volume 88 fL (79-100) Mean Corpuscular Hemoglobin 31 pg (25-35) Mean Corpuscular Hemoglobin Concent 35 g/dL (31-37) Red Cell Distribution Width 12.8 % (11.5-14.5) Platelet Count 252 x10^3/uL (140-400) Neutrophils (%) (Auto) 57 % (31-73) Lymphocytes (%) (Auto) 34 % (24-48) Monocytes (%) (Auto) 7 % (0-9) Eosinophils (%) (Auto) 1 % (0-3) Basophils (%) (Auto) 0 % (0-3) Neutrophils # (Auto) 5.6 x10^3uL (1.8-7.7) Lymphocytes # (Auto) 3.3 x10^3/uL (1.0-4.8) Monocytes # (Auto) 0.7 x10^3/uL (0.0-1.1) Eosinophils # (Auto) 0.1 x10^3/uL (0.0-0.7) Basophils # (Auto) 0.0 x10^3/uL (0.0-0.2) Prothrombin Time 12.4 SEC (11.7-14.0) Prothromb Time International Ratio 1.0 (0.8-1.1) D-Dimer (Reena) 0.27 ug/mlFEU (0.00-0.50) Sodium Level 135 mmol/L (136-145) Potassium Level 3.3 mmol/L (3.5-5.1) Chloride Level 95 mmol/L (98-107) Carbon Dioxide Level 26 mmol/L (21-32) Anion Gap 14 (6-14) Blood Urea Nitrogen 23 mg/dL (8-26) Creatinine 1.5 mg/dL (0.7-1.3) Estimated GFR (Cockcroft-Gault) 52.4 BUN/Creatinine Ratio 15 (6-20) Glucose Level 289 mg/dL (70-99) Calcium Level 9.2 mg/dL (8.5-10.1) Magnesium Level 1.7 mg/dL (1.8-2.4) Total Bilirubin 0.7 mg/dL (0.2-1.0) Aspartate Amino Transf (AST/SGOT) 19 U/L (15-37) Alanine Aminotransferase (ALT/SGPT) 27 U/L (16-63) Alkaline Phosphatase 89 U/L (46-116) Creatine Kinase 75 U/L (39-308) Creatine Kinase MB (Mass) < 0.5 ng/mL (0.0-3.6) Creatine Kinase MB Relative Index % (0-4) Troponin I Quantitative 0.021 ng/mL (0.000-0.055) PE-Ibq-J-Type Natriuretic Peptide 30 pg/mL (0-124) Total Protein 8.1 g/dL (6.4-8.2) Albumin 3.8 g/dL (3.4-5.0) Albumin/Globulin Ratio 0.9 (1.0-1.7) Lipase 136 U/L (73-393) Thyroid Stimulating Hormone (TSH) 2.216 uIU/mL (0.358-3.74) Urine Collection Type Unknown Urine Color Yellow Urine Clarity Clear Urine pH 5.5 Urine Specific [place] >=1.030 Urine Protein >=300 mg/dL (NEG-TRACE) Urine Glucose (UA) >=1000 mg/dL (NEG) Urine Ketones (Stick) Trace mg/dL (NEG) Urine Blood Moderate (NEG) Urine Nitrite Negative (NEG) Urine Bilirubin Negative (NEG) Urine Urobilinogen Dipstick 0.2 mg/dL (0.2 mg/dL) Urine Leukocyte Esterase Negative (NEG) Urine RBC 11-20 /HPF (0-2) Urine WBC 1-4 /HPF (0-4) Urine Squamous Epithelial Cells Few /LPF Urine Bacteria Few /HPF (0-FEW) Urine Mucus Marked /LPF Urine Opiates Screen Pos (NEG) Urine Methadone Screen Neg (NEG) Urine Barbiturates Neg (NEG) Urine Phencyclidine Screen Neg (NEG) Urine Amphetamine/Methamphetamine Neg (NEG) Urine Benzodiazepines Screen Neg (NEG) Urine Cocaine Screen Neg (NEG) Urine Cannabinoids Screen Neg (NEG) Urine Ethyl Alcohol Neg (NEG) Glucose (Fingerstick) 234 mg/dL (70-99) 241 mg/dL (70-99) Test 05/15/18 01:30 05/15/18 05:40 05/15/18 07:52 05/15/18 11:28 Troponin I Quantitative 0.034 ng/mL (0.000-0.055) 0.051 ng/mL (0.000-0.055) Glucose (Fingerstick) 214 mg/dL (70-99) 190 mg/dL (70-99) Laboratory Tests Test 05/14/18 18:48 05/14/18 19:17 05/14/18 20:41 05/14/18 23:18 White Blood Count 9.8 x10^3/uL (4.0-11.0) Red Blood Count 5.73 x10^6/uL (4.30-5.70) Hemoglobin 17.6 g/dL (13.0-17.5) Hematocrit 50.6 % (39.0-53.0) Mean Corpuscular Volume 88 fL (79-100) Mean Corpuscular Hemoglobin 31 pg (25-35) Mean Corpuscular Hemoglobin Concent 35 g/dL (31-37) Red Cell Distribution Width 12.8 % (11.5-14.5) Platelet Count 252 x10^3/uL (140-400) Neutrophils (%) (Auto) 57 % (31-73) Lymphocytes (%) (Auto) 34 % (24-48) Monocytes (%) (Auto) 7 % (0-9) Eosinophils (%) (Auto) 1 % (0-3) Basophils (%) (Auto) 0 % (0-3) Neutrophils # (Auto) 5.6 x10^3uL (1.8-7.7) Lymphocytes # (Auto) 3.3 x10^3/uL (1.0-4.8) Monocytes # (Auto) 0.7 x10^3/uL (0.0-1.1) Eosinophils # (Auto) 0.1 x10^3/uL (0.0-0.7) Basophils # (Auto) 0.0 x10^3/uL (0.0-0.2) Prothrombin Time 12.4 SEC (11.7-14.0) Prothromb Time International Ratio 1.0 (0.8-1.1) D-Dimer (Reena) 0.27 ug/mlFEU (0.00-0.50) Sodium Level 135 mmol/L (136-145) Potassium Level 3.3 mmol/L (3.5-5.1) Chloride Level 95 mmol/L (98-107) Carbon Dioxide Level 26 mmol/L (21-32) Anion Gap 14 (6-14) Blood Urea Nitrogen 23 mg/dL (8-26) Creatinine 1.5 mg/dL (0.7-1.3) Estimated GFR (Cockcroft-Gault) 52.4 BUN/Creatinine Ratio 15 (6-20) Glucose Level 289 mg/dL (70-99) Calcium Level 9.2 mg/dL (8.5-10.1) Magnesium Level 1.7 mg/dL (1.8-2.4) Total Bilirubin 0.7 mg/dL (0.2-1.0) Aspartate Amino Transf (AST/SGOT) 19 U/L (15-37) Alanine Aminotransferase (ALT/SGPT) 27 U/L (16-63) Alkaline Phosphatase 89 U/L (46-116) Creatine Kinase 75 U/L (39-308) Creatine Kinase MB (Mass) < 0.5 ng/mL (0.0-3.6) Creatine Kinase MB Relative Index % (0-4) Troponin I Quantitative 0.021 ng/mL (0.000-0.055) QL-Dho-F-Type Natriuretic Peptide 30 pg/mL (0-124) Total Protein 8.1 g/dL (6.4-8.2) Albumin 3.8 g/dL (3.4-5.0) Albumin/Globulin Ratio 0.9 (1.0-1.7) Lipase 136 U/L (73-393) Thyroid Stimulating Hormone (TSH) 2.216 uIU/mL (0.358-3.74) Urine Collection Type Unknown Urine Color Yellow Urine Clarity Clear Urine pH 5.5 Urine Specific [place] >=1.030 Urine Protein >=300 mg/dL (NEG-TRACE) Urine Glucose (UA) >=1000 mg/dL (NEG) Urine Ketones (Stick) Trace mg/dL (NEG) Urine Blood Moderate (NEG) Urine Nitrite Negative (NEG) Urine Bilirubin Negative (NEG) Urine Urobilinogen Dipstick 0.2 mg/dL (0.2 mg/dL) Urine Leukocyte Esterase Negative (NEG) Urine RBC 11-20 /HPF (0-2) Urine WBC 1-4 /HPF (0-4) Urine Squamous Epithelial Cells Few /LPF Urine Bacteria Few /HPF (0-FEW) Urine Mucus Marked /LPF Urine Opiates Screen Pos (NEG) Urine Methadone Screen Neg (NEG) Urine Barbiturates Neg (NEG) Urine Phencyclidine Screen Neg (NEG) Urine Amphetamine/Methamphetamine Neg (NEG) Urine Benzodiazepines Screen Neg (NEG) Urine Cocaine Screen Neg (NEG) Urine Cannabinoids Screen Neg (NEG) Urine Ethyl Alcohol Neg (NEG) Glucose (Fingerstick) 234 mg/dL (70-99) 241 mg/dL (70-99) Test 05/15/18 01:30 05/15/18 05:40 05/15/18 07:52 05/15/18 11:28 Troponin I Quantitative 0.034 ng/mL (0.000-0.055) 0.051 ng/mL (0.000-0.055) Glucose (Fingerstick) 214 mg/dL (70-99) 190 mg/dL (70-99) VTE Prophylaxis Ordered VTE Prophylaxis Devices: No VTE Pharmacological Prophylaxi: Yes Assessment/Plan Assessment/Plan Atypical chest pain Uncontrolled hypertension Diabetes mellitus type 2 sqg-[id number] next number obesity with a BMI of 35 Dietary transgressions Plan: Trend troponins Consult cardiology Limit salt intake Will resume home medications and observe Counseling regarding dietary principles and the importance of adherence to the medication took place, patient acknowledged understanding of all the instructions The prophylaxis with Lovenox Problem Qualifiers (1) Chest pain: Chest pain type: unspecified Qualified Codes: R07.9 - Chest pain, unspecified AIDA ZULUAGA MD May 15, 2018 15:54
[2018-05-15 19:00] VITALS: BP 144/99
[2018-05-15 23:05] VITALS: BP 144/102
[2018-05-16 03:00] VITALS: BP 135/100
[2018-05-16 06:06] LABS: BASO % 0 % (0-3); EOS # 0.1 x10^3/uL (0.0-0.7); EOS % 1 % (0-3); HEMATOCRIT 46.2 % (39.0-53.0); HEMOGLOBIN 16.2 g/dL (13.0-17.5); LYMPH # 2.9 x10^3/uL (1.0-4.8); LYMPH % 44 % (24-48); MEAN CORPUSCULAR HEMOGLOBIN 31 pg (25-35); MEAN CORPUSCULAR HGB CONC 35 g/dL (31-37); MEAN CORPUSCULAR VOLUME 89 fL (79-100); MONO # 0.5 x10^3/uL (0.0-1.1); MONO % 8 % (0-9); NEUT # 3.1 x10^3uL (1.8-7.7); NEUT % 47 % (31-73); PLATELET COUNT 204 x10^3/uL (140-400); RED BLOOD COUNT 5.19 x10^6/uL (4.30-5.70); RED CELL DISTRIBUTION WIDTH 13.2 % (11.5-14.5); WHITE BLOOD COUNT 6.6 x10^3/uL (4.0-11.0)
[2018-05-16 06:39] LABS: CALCIUM 8.7 mg/dL (8.5-10.1); CREATININE 0.8 mg/dL (0.7-1.3); GFR 108.2; POTASSIUM 3.5 mmol/L (3.5-5.1)
[2018-05-16 06:40] LABS: CHOLESTEROL/HDL RATIO 6.3
[2018-05-16 07:00] VITALS: BP 138/98
[2018-05-16] MEDS: INSULIN LISPRO 300 UNITS/3 ML INSULN.PEN. SQ SCH ×3 (07:53→17:38)
[2018-05-16] MEDS ORDERED: REGADENOSON 0.4 MG/5 ML DISP.SYRIN. IV ONE (08:30)
[2018-05-16 11:00] VITALS: BP 128/80
[2018-05-16] MEDS: LISINOPRIL 20 MG TABLET PO SCH (11:32)
--- NOTE | 2018-05-16 14:54 | RAD ---
EXAM: CHEST 1 VIEW History: Chest pain COMPARISON: 03/15/2014 TECHNIQUE: Single portable radiograph of the chest FINDINGS: The cardiac silhouette is unremarkable. The lungs are clear bilaterally. The costophrenic sulci are clear and well demarcated. IMPRESSION: No radiographic evidence of an acute cardiopulmonary process. Electronically signed by: Saji Antonio MD (05/16/2018 2:50 PM) [place] [id number]
[2018-05-16 15:00] VITALS: BP 145/97
--- NOTE | 2018-05-16 15:38 | RAD ---
MR#: [id number] Date of Study: 05/16/2018 Ordering Physician: SRINIVAS CURTIS, Referring Physician: ZOE PACKER Tech: RT Alice (R) (N) APPROVED REPORT Test Type: Pharmacological Stress Nurse/Tech: Geovanna Villegas RN Test Indications: chest pain, abnormal EKG Cardiac History: HTN Medications: See EMR Medical History: smoker quit 7 years ago Resting ECG: SR Resting Heart Rate: 80 bpm Resting Blood Pressure: 156/102mmHg Pretest Chest Pain: No chest pain Nurse/Tech Notes lungs sounds clear, heart tones regular Consent: The procedure was explained to the patient in lay terms. Informed consent was witnessed. Sanchez eout was entered into [facility]. History and Stress Test performed by MIKA Sr, REYES (R) (N) Pharm. Details Pharmacologic stress testing was performed using 0.4mg per 5ml of regadenoson given intravenously ove r 7-10 seconds. Stress Symptoms pt c/o having chest pressure starting at stage 1, time 0100. states chest pressure is 5/10. pressure slowly relieved througout test. pt back to baseline by end of test. POST EXERCISE Reason for Termination: Infusion complete Max HR: 139 bpm Max Blood Pressure: 160/99mmHg Chest Pain: Yes. see stress symptoms above Arrhythmia: No. ST Change: No. INTERPRETATION Stress EKG Conclusion: Mild non-specific 1mm horizontal lateral ST segment depression. Imaging Protocol IMAGE PROTOCOL: Rest Tc-99m/stress Tc-99m 1 day Rest: Stress: Viability: Radiopharm.Tc99m RpnpnsoujFm11p Sestamibi Dose10.2mCi 33mCi Duration 15min. 10min. Img Date 05/16/2018 05/16/2018 Inj-Img [id number]. 60min. Rest Admin Site:IV - Right AntecubitalAdministrator:RT Alice (R)(N) Stress Admin Site: IV - Right AntecubitalAdministrator: MIKA Sr, REYES (R)(N) STRESS DATA End Diast. Vol.136.0mlAv. Heart Rate88.0bpm End Syst. Vol.36.0mlCO Index BSA0.0L/min Myocardial Xwsj687.0gEject. Pdxajbci49.0% Stress Rates Pk. Fill Rate2.83EDV/secLVtime Pk. Fill 175.00msec Pk. Empty Rate5.22ESV/secLVtime Pk. Hkpxm248.37msec 1/3 Pk. Fill1.23EDV/sec Stress Scores Regional WT0.00Summed WT8.00 Regional WM0.00Summed WM1.00 The rest and stress images show normal perfusion, normal contraction and thickening. LV Perf. Quant 17 Seg. SSS0.00 17 Seg. SRS0.00 17 Seg. SDS0.00 Stress Defect Extent (% LAD)0.00Rest Defect Extent (% LAD)0.00Rev. Defect Extent (% LAD)0.00 Stress Defect Extent (% LCX) 0.00Rest Defect Extent (% LCX)0.00Rev. Defect Extent (% LCX)0.00 Stress Defect Extent (% RCA)0.00Rest Defect Extent (% RCA)0.00Rev. Defect Extent (% RCA)0.00 Stress Defect Extent (% SOL)0.00Rest Defect Extent (% SOL)0.00Rev. Defect Extent (% SOL)0.00 Other Information Quality:Average Risk Assessment: Low Risk Conclusion 1. Mildly abnormal EKG response with lateral 1mm ST segment depression 2. Normal perfusion at stress/rest. 3. Normal EF at > 60% 4. Low risk study Signed by : Nader Purvis, Electronically Approved : 05/16/2018 15:36:41
--- NOTE | 2018-05-16 16:15 | NUR ---
SW following pt for anticipated dc needs. chart reviewed. Pt lives at home with spouse/family and is self pay. SW will continue to follow pt to assess dc needs.
[2018-05-16] MEDS ORDERED: ATOR40TA59 PO (16:28)
--- NOTE | 2018-05-16 16:28 | PDOC ---
CARDIO Progress Notes Date and Time Date of Service 05/16/18 Time of Evaluation 1435 Subjective Subjective: No Chest Pain, No shortness of breath Vitals Vitals Vital Signs Date Time Temp Pulse Resp B/P (MAP) Pulse Ox O2 Delivery O2 Flow Rate FiO2 05/16/18 15:00 97.8 76 18 145/97 (113) 94 Room Air 97.8 Weight Weight [ ] Input and Output Intake and Output Intake and Output 05/16/18 07:01 Intake Total 800 ml Balance 800 ml Intake Oral 0 ml IV Total 800 ml # Voids 4 Laboratory Labs Laboratory Tests Test 05/15/18 20:29 05/16/18 05:26 05/16/18 07:28 05/16/18 11:22 Glucose (Fingerstick) 213 mg/dL (70-99) 192 mg/dL (70-99) 179 mg/dL (70-99) White Blood Count 6.6 x10^3/uL (4.0-11.0) Red Blood Count 5.19 x10^6/uL (4.30-5.70) Hemoglobin 16.2 g/dL (13.0-17.5) Hematocrit 46.2 % (39.0-53.0) Mean Corpuscular Volume 89 fL (79-100) Mean Corpuscular Hemoglobin 31 pg (25-35) Mean Corpuscular Hemoglobin Concent 35 g/dL (31-37) Red Cell Distribution Width 13.2 % (11.5-14.5) Platelet Count 204 x10^3/uL (140-400) Neutrophils (%) (Auto) 47 % (31-73) Lymphocytes (%) (Auto) 44 % (24-48) Monocytes (%) (Auto) 8 % (0-9) Eosinophils (%) (Auto) 1 % (0-3) Basophils (%) (Auto) 0 % (0-3) Neutrophils # (Auto) 3.1 x10^3uL (1.8-7.7) Lymphocytes # (Auto) 2.9 x10^3/uL (1.0-4.8) Monocytes # (Auto) 0.5 x10^3/uL (0.0-1.1) Eosinophils # (Auto) 0.1 x10^3/uL (0.0-0.7) Basophils # (Auto) 0.0 x10^3/uL (0.0-0.2) Sodium Level 140 mmol/L (136-145) Potassium Level 3.5 mmol/L (3.5-5.1) Chloride Level 103 mmol/L (98-107) Carbon Dioxide Level 27 mmol/L (21-32) Anion Gap 10 (6-14) Blood Urea Nitrogen 13 mg/dL (8-26) Creatinine 0.8 mg/dL (0.7-1.3) Estimated GFR (Cockcroft-Gault) 108.2 Glucose Level 187 mg/dL (70-99) Calcium Level 8.7 mg/dL (8.5-10.1) Triglycerides Level 339 mg/dL (0-150) Cholesterol Level 213 mg/dL (0-200) LDL Cholesterol, Calculated 111 mg/dL (0-100) VLDL Cholesterol, Calculated 68 mg/dL (0-40) Non-HDL Cholesterol Calculated 179 mg/dL (0-129) HDL Cholesterol 34 mg/dL (40-60) Cholesterol/HDL Ratio 6.3 Physical Exam HEENT: Neck Supple W Full Motion Chest: Symmetric LUNGS: Clear to Auscultation Heart: S1S2, RRR Abdomen: Soft N/T, Other (obese) Extremities: No Calf Tenderness Neurology: alert, oriented, follow commands Assessment Assessment 1. Chest pain, atypical. Troponin series WNL, AMI ruled out. MPI showed normal perfusion at rest and stress. 2. Hypertension; now controlled 3. Diabetes, II; uncontrolled. As per PCP 4. RAMOS; resolved. 5. Dyslipidemia 6. Obesity; discussed/encouraged lifestyle modification Recommendations Add statin Risk stratification modification May discharge from a CV standpoint JEANNIE SIMMONS APRN May 16, 2018 16:28
--- NOTE | 2018-05-16 16:32 | PDOC3 ---
Discharge Summary Visit Information Date of Admission: May 15, 2018 Date of Discharge: May 16, 2018 Admitting Diagnosis: Chest pain Final Diagnosis Chest pain ACS ruled out Dyslipidemia HTN DM type 2 Obesity with BMI of 35 Brief Hospital Course Allergies Allergies Coded Allergies Type Severity Reaction Last Updated Verified No Known Drug Allergies 03/15/14 No Vital Signs Vital Signs Date Time Temp Pulse Resp B/P (MAP) Pulse Ox O2 Delivery O2 Flow Rate FiO2 05/16/18 15:00 97.8 76 18 145/97 (113) 94 Room Air 97.8 Lab Results Laboratory Tests Test 05/14/18 18:48 05/14/18 19:17 05/14/18 20:41 05/14/18 23:18 White Blood Count 9.8 x10^3/uL (4.0-11.0) Red Blood Count 5.73 x10^6/uL (4.30-5.70) Hemoglobin 17.6 g/dL (13.0-17.5) Hematocrit 50.6 % (39.0-53.0) Mean Corpuscular Volume 88 fL (79-100) Mean Corpuscular Hemoglobin 31 pg (25-35) Mean Corpuscular Hemoglobin Concent 35 g/dL (31-37) Red Cell Distribution Width 12.8 % (11.5-14.5) Platelet Count 252 x10^3/uL (140-400) Neutrophils (%) (Auto) 57 % (31-73) Lymphocytes (%) (Auto) 34 % (24-48) Monocytes (%) (Auto) 7 % (0-9) Eosinophils (%) (Auto) 1 % (0-3) Basophils (%) (Auto) 0 % (0-3) Neutrophils # (Auto) 5.6 x10^3uL (1.8-7.7) Lymphocytes # (Auto) 3.3 x10^3/uL (1.0-4.8) Monocytes # (Auto) 0.7 x10^3/uL (0.0-1.1) Eosinophils # (Auto) 0.1 x10^3/uL (0.0-0.7) Basophils # (Auto) 0.0 x10^3/uL (0.0-0.2) Prothrombin Time 12.4 SEC (11.7-14.0) Prothromb Time International Ratio 1.0 (0.8-1.1) D-Dimer (Reena) 0.27 ug/mlFEU (0.00-0.50) Sodium Level 135 mmol/L (136-145) Potassium Level 3.3 mmol/L (3.5-5.1) Chloride Level 95 mmol/L (98-107) Carbon Dioxide Level 26 mmol/L (21-32) Anion Gap 14 (6-14) Blood Urea Nitrogen 23 mg/dL (8-26) Creatinine 1.5 mg/dL (0.7-1.3) Estimated GFR (Cockcroft-Gault) 52.4 BUN/Creatinine Ratio 15 (6-20) Glucose Level 289 mg/dL (70-99) Calcium Level 9.2 mg/dL (8.5-10.1) Magnesium Level 1.7 mg/dL (1.8-2.4) Total Bilirubin 0.7 mg/dL (0.2-1.0) Aspartate Amino Transf (AST/SGOT) 19 U/L (15-37) Alanine Aminotransferase (ALT/SGPT) 27 U/L (16-63) Alkaline Phosphatase 89 U/L (46-116) Creatine Kinase 75 U/L (39-308) Creatine Kinase MB (Mass) < 0.5 ng/mL (0.0-3.6) Creatine Kinase MB Relative Index % (0-4) Troponin I Quantitative 0.021 ng/mL (0.000-0.055) BJ-Bcd-W-Type Natriuretic Peptide 30 pg/mL (0-124) Total Protein 8.1 g/dL (6.4-8.2) Albumin 3.8 g/dL (3.4-5.0) Albumin/Globulin Ratio 0.9 (1.0-1.7) Lipase 136 U/L (73-393) Thyroid Stimulating Hormone (TSH) 2.216 uIU/mL (0.358-3.74) Urine Collection Type Unknown Urine Color Yellow Urine Clarity Clear Urine pH 5.5 Urine Specific [place] >=1.030 Urine Protein >=300 mg/dL (NEG-TRACE) Urine Glucose (UA) >=1000 mg/dL (NEG) Urine Ketones (Stick) Trace mg/dL (NEG) Urine Blood Moderate (NEG) Urine Nitrite Negative (NEG) Urine Bilirubin Negative (NEG) Urine Urobilinogen Dipstick 0.2 mg/dL (0.2 mg/dL) Urine Leukocyte Esterase Negative (NEG) Urine RBC 11-20 /HPF (0-2) Urine WBC 1-4 /HPF (0-4) Urine Squamous Epithelial Cells Few /LPF Urine Bacteria Few /HPF (0-FEW) Urine Mucus Marked /LPF Urine Opiates Screen Pos (NEG) Urine Methadone Screen Neg (NEG) Urine Barbiturates Neg (NEG) Urine Phencyclidine Screen Neg (NEG) Urine Amphetamine/Methamphetamine Neg (NEG) Urine Benzodiazepines Screen Neg (NEG) Urine Cocaine Screen Neg (NEG) Urine Cannabinoids Screen Neg (NEG) Urine Ethyl Alcohol Neg (NEG) Glucose (Fingerstick) 234 mg/dL (70-99) 241 mg/dL (70-99) Test 05/15/18 01:30 05/15/18 05:40 05/15/18 07:52 05/15/18 11:28 Troponin I Quantitative 0.034 ng/mL (0.000-0.055) 0.051 ng/mL (0.000-0.055) Glucose (Fingerstick) 214 mg/dL (70-99) 190 mg/dL (70-99) Test 05/15/18 11:56 05/15/18 16:21 05/15/18 20:29 05/16/18 05:26 Glucose (Fingerstick) 198 mg/dL (70-99) 198 mg/dL (70-99) 213 mg/dL (70-99) White Blood Count 6.6 x10^3/uL (4.0-11.0) Red Blood Count 5.19 x10^6/uL (4.30-5.70) Hemoglobin 16.2 g/dL (13.0-17.5) Hematocrit 46.2 % (39.0-53.0) Mean Corpuscular Volume 89 fL (79-100) Mean Corpuscular Hemoglobin 31 pg (25-35) Mean Corpuscular Hemoglobin Concent 35 g/dL (31-37) Red Cell Distribution Width 13.2 % (11.5-14.5) Platelet Count 204 x10^3/uL (140-400) Neutrophils (%) (Auto) 47 % (31-73) Lymphocytes (%) (Auto) 44 % (24-48) Monocytes (%) (Auto) 8 % (0-9) Eosinophils (%) (Auto) 1 % (0-3) Basophils (%) (Auto) 0 % (0-3) Neutrophils # (Auto) 3.1 x10^3uL (1.8-7.7) Lymphocytes # (Auto) 2.9 x10^3/uL (1.0-4.8) Monocytes # (Auto) 0.5 x10^3/uL (0.0-1.1) Eosinophils # (Auto) 0.1 x10^3/uL (0.0-0.7) Basophils # (Auto) 0.0 x10^3/uL (0.0-0.2) Sodium Level 140 mmol/L (136-145) Potassium Level 3.5 mmol/L (3.5-5.1) Chloride Level 103 mmol/L (98-107) Carbon Dioxide Level 27 mmol/L (21-32) Anion Gap 10 (6-14) Blood Urea Nitrogen 13 mg/dL (8-26) Creatinine 0.8 mg/dL (0.7-1.3) Estimated GFR (Cockcroft-Gault) 108.2 Glucose Level 187 mg/dL (70-99) Calcium Level 8.7 mg/dL (8.5-10.1) Triglycerides Level 339 mg/dL (0-150) Cholesterol Level 213 mg/dL (0-200) LDL Cholesterol, Calculated 111 mg/dL (0-100) VLDL Cholesterol, Calculated 68 mg/dL (0-40) Non-HDL Cholesterol Calculated 179 mg/dL (0-129) HDL Cholesterol 34 mg/dL (40-60) Cholesterol/HDL Ratio 6.3 Test 05/16/18 07:28 05/16/18 11:22 Glucose (Fingerstick) 192 mg/dL (70-99) 179 mg/dL (70-99) Laboratory Tests Test 05/15/18 20:29 05/16/18 05:26 05/16/18 07:28 05/16/18 11:22 Glucose (Fingerstick) 213 mg/dL (70-99) 192 mg/dL (70-99) 179 mg/dL (70-99) White Blood Count 6.6 x10^3/uL (4.0-11.0) Red Blood Count 5.19 x10^6/uL (4.30-5.70) Hemoglobin 16.2 g/dL (13.0-17.5) Hematocrit 46.2 % (39.0-53.0) Mean Corpuscular Volume 89 fL (79-100) Mean Corpuscular Hemoglobin 31 pg (25-35) Mean Corpuscular Hemoglobin Concent 35 g/dL (31-37) Red Cell Distribution Width 13.2 % (11.5-14.5) Platelet Count 204 x10^3/uL (140-400) Neutrophils (%) (Auto) 47 % (31-73) Lymphocytes (%) (Auto) 44 % (24-48) Monocytes (%) (Auto) 8 % (0-9) Eosinophils (%) (Auto) 1 % (0-3) Basophils (%) (Auto) 0 % (0-3) Neutrophils # (Auto) 3.1 x10^3uL (1.8-7.7) Lymphocytes # (Auto) 2.9 x10^3/uL (1.0-4.8) Monocytes # (Auto) 0.5 x10^3/uL (0.0-1.1) Eosinophils # (Auto) 0.1 x10^3/uL (0.0-0.7) Basophils # (Auto) 0.0 x10^3/uL (0.0-0.2) Sodium Level 140 mmol/L (136-145) Potassium Level 3.5 mmol/L (3.5-5.1) Chloride Level 103 mmol/L (98-107) Carbon Dioxide Level 27 mmol/L (21-32) Anion Gap 10 (6-14) Blood Urea Nitrogen 13 mg/dL (8-26) Creatinine 0.8 mg/dL (0.7-1.3) Estimated GFR (Cockcroft-Gault) 108.2 Glucose Level 187 mg/dL (70-99) Calcium Level 8.7 mg/dL (8.5-10.1) Triglycerides Level 339 mg/dL (0-150) Cholesterol Level 213 mg/dL (0-200) LDL Cholesterol, Calculated 111 mg/dL (0-100) VLDL Cholesterol, Calculated 68 mg/dL (0-40) Non-HDL Cholesterol Calculated 179 mg/dL (0-129) HDL Cholesterol 34 mg/dL (40-60) Cholesterol/HDL Ratio 6.3 Brief Hospital Course Mr. Correa is a 37 old male who presented with chest discomfort and headache due to uncotnroleld hypertension. Patient was evaluated by cardiology and stress test was requested given his multiple risk factors. The patient had the following results from his test: PATIENT: JUANIS CORREA ACCOUNT: [id number] : 1980 LOCATION: [address] [place] [address] AGE: 37 SEX: M EXAM STATUS: ADM IN ORD. PHYSICIAN: SRINIVAS CURTIS MD REASON: chest pain, abnormal EKG PROCEDURE: MPI SPECT 1DAY REST&STRESS PHA MR#: [id number] Date of Study: 05/16/2018 Ordering Physician: SRINIVAS CURTIS, Referring Physician: ZOE PACKER Tech: RT Alice (R) (N) APPROVED REPORT Test Type: Pharmacological Stress Nurse/Tech: Geovanna Villegas RN Test Indications: chest pain, abnormal EKG Cardiac History: HTN Medications: See EMR Medical History: smoker quit 7 years ago Resting ECG: SR Resting Heart Rate: 80 bpm Resting Blood Pressure: 156/102mmHg Pretest Chest Pain: No chest pain Nurse/Tech Notes lungs sounds clear, heart tones regular Consent: The procedure was explained to the patient in lay terms. Informed consent was witnessed. Timeout was entered into JCD. History and Stress Test performed by MIKA Sr, ARRT (R) (N) Pharm. Details Pharmacologic stress testing was performed using 0.4mg per 5ml of regadenoson given intravenously over 7-10 seconds. Stress Symptoms pt c/o having chest pressure starting at stage 1, time 0100. states chest pressure is 5/10. pressure slowly relieved througout test. pt back to baseline by end of test. POST EXERCISE Reason for Termination: Infusion complete Max HR: 139 bpm Max Blood Pressure: 160/99mmHg Chest Pain: Yes. see stress symptoms above Arrhythmia: No. ST Change: No. INTERPRETATION Stress EKG Conclusion: Mild non-specific 1mm horizontal lateral ST segment depression. Imaging Protocol IMAGE PROTOCOL: Rest Tc-99m/stress Tc-99m 1 day Rest: Stress: Viability: Radiopharm. Tc99m Sestamibi Tc99m Sestamibi Dose 10.2mCi 33mCi Duration 15min. 10min. Img Date 05/16/2018 05/16/2018 Inj-Img Time 120min. 60min. Rest Admin Site: IV - Right Antecubital Yard Brakeman: Jane Barton, RT (R)( N) Stress Admin Site: IV - Right Antecubital Yard Brakeman: MIKA Sr, ARRT (R)(N) STRESS DATA End Diast. Vol. 136.0ml Av. Heart Rate 88.0bpm End Syst. Vol. 36.0ml CO Index BSA 0.0L/min Myocardial Mass 179.0g Eject. Fraction 74.0% Stress Rates Pk. Fill Rate 2.83EDV/sec LVtime Pk. Fill 175.00msec Pk. Empty Rate 5.22ESV/sec LVtime Pk. Eject 170.37msec 1/3 Pk. Fill 1.23EDV/sec Stress Scores Regional WT 0.00 Summed WT 8.00 Regional WM 0.00 Summed WM 1.00 The rest and stress images show normal perfusion, normal contraction and thickening. LV Perf. Quant 17 Seg. SSS 0.00 17 Seg. SRS 0.00 17 Seg. SDS 0.00 Stress Defect Extent (% LAD) 0.00 Rest Defect Extent (% LAD) 0.00 Rev. Defect Extent (% LAD) 0.00 Stress Defect Extent (% LCX) 0.00 Rest Defect Extent (% LCX) 0.00 Rev. Defect Extent (% LCX) 0.00 Stress Defect Extent (% RCA) 0.00 Rest Defect Extent (% RCA) 0.00 Rev. Defect Extent (% RCA) 0.00 Stress Defect Extent (% SOL) 0.00 Rest Defect Extent (% SOL) 0.00 Rev. Defect Extent (% SOL) 0.00 Other Information Quality:Average Risk Assessment: Low Risk Conclusion 1. Mildly abnormal EKG response with lateral 1mm ST segment depression 2. Normal perfusion at stress/rest. 3. Normal EF at > 60% 4. Low risk study Signed by : Melonie Purvis, Electronically Approved : 05/16/2018 15:36:41 DICTATED and SIGNED BY: MELONIE PURVIS MD DATE: 05/16/181535 Given his lipid panel the patient was started on atorvastatin and dietary counseling was done prior to discharge. Signs and symptoms of alarm were discussed with the patient and his prior to dismissal. The patient was encouraged to follow up with primary care physician in one week and with cardiology in 3-4 weeks. Patient acknowledged understanding of all the instructions and is in good spirits to be dismissed home. The patient did not present any adverse outcomes during his hospital stay and no further chest discomfort was voiced. Blood pressure was better controlled with medication Discharge Information Condition at Discharge: Improved Follow Up: Weeks (one week with primary care physician) Disposition/Orders: D/C to Home Scheduled Atorvastatin Calcium (Atorvastatin Calcium) 40 Mg Tablet, 40 MG PO QHS for Dyslipidemia for 30 Days, #30 Prescribed by: AIDA ZULUAGA MD on 05/16/18 1628 Lisinopril (Lisinopril) 20 Mg Tablet, 1 TAB PO DAILY for htn, #30 Ref 5 ( Reported) Entered as Reported by: KWAME MARES on 05/15/18723 Last Taken: Unknown Dose on 05/14/18999 Last Action: Continued on 1341 by CRISTY CASTLE Metformin Hcl (Glucophage) 500 Mg Tablet, 500 MG PO BIDWMEALS, #60 Ref 5 Prescribed by: NUBIA MARTINEZ on 03/16/14 1118 Last Taken: Unknown Dose on 05/14/18 1000 Last Action: Last Taken Edited on 05/15/18 121 by BI ZAMARRIPA Scheduled PRN Ibuprofen (Ibuprofen) 800 Mg Tablet, 800 MG PO PRN Q8HRS PRN for INFLAMMATION, ( Reported) Entered as Reported by: KWAME MARES on 05/15/18723 Last Taken: Unknown Dose on Unknown Date & Time Last Action: Last Taken Edited on 05/15/181215 by BI ZAMARRIPA Discontinued Medications Atenolol (Atenolol) 25 Mg Tablet, 1 TAB PO HS, #30 Ref 5 (Reported) Entered as Reported by: NAYELI MIRELES on 03/15/14 1919 Last Action: Discontinued on 05/15/18723 by AIDA GAMBINO MD May 16, 2018 16:32
--- NOTE | 2018-05-16 18:39 | NUR ---
Discharge teaching provided written and verbal to pt's ,understanding verbalized. Dismissed to home with all belongings accompanied by his .Transported to exit per w/c at 1745.
[2018-05-16] MEDS ORDERED: ATORVASTATIN CALCIUM 40 MG TABLET. PO SCH (21:00)
[2018-05-17 20:02] LABS: GRANULAR CASTS,URINE OCCASIONAL /HPF; HYALINE CASTS, URINE MODERATE /HPF
== END 2018-05-16 17:45 | disposition home or self-care (01) | DRG 391 ==
LOC: ER 17:53 → 5 NORTH 05-15 00:06
PROVIDERS: ADMIT Internal Medicine; ATTEND Internal Medicine
DX: K21.9 Gastro-esophageal reflux disease without esophagitis (principal); N17.0 Acute kidney failure with tubular necrosis; I12.9 Hypertensive chronic kidney disease with stage 1 through stage 4 chronic kidney disease, or unspecified chronic kidney disease; E11.65 Type 2 diabetes mellitus with hyperglycemia; E11.22 Type 2 diabetes mellitus with diabetic chronic kidney disease; N18.9 Chronic kidney disease, unspecified; E66.9 Obesity, unspecified; E78.5 Hyperlipidemia, unspecified; Z82.49 Family history of ischemic heart disease and other diseases of the circulatory system; Z68.35 Body mass index [BMI] 35.0-35.9, adult; Z91.14 Patient's other noncompliance with medication regimen
CPT/HCPCS: 36415; 71045; 74176; 78452; 80048; 80053; 80061; 80307; 81001; 82553; 82962; 83690; 83735; 83880; 84443; 84484; 85025; 85379; 85610; 93005; 93017; 96361; 96374; 96375; A9500; J1815; J2270; J2785; J3490; J7030; 99285-25

== ENCOUNTER 2020-10-21 20:50 | Emergency (ER) | payer SELFPAY ==
[~2020-10-21] VITALS: Ht 182.9 cm; Wt 120.4 kg
[~2020-10-21 20:50] MED LIST changes: +ATOR40TA59 PO; +LISI1TAB23 PO; -LISI1TAB3 PO; +LISI20TA18 PO
--- NOTE | 2020-10-21 23:02 | RAD ---
Exam: Chest one view INDICATION: Cough TECHNIQUE: Frontal view of the chest Comparisons: 05/14/2018 FINDINGS: The cardiomediastinal silhouette and pulmonary vessels are within normal limits. The lung and pleural spaces are clear. IMPRESSION: No acute cardiopulmonary process. Electronically signed by: Anay Comer MD (10/21/2020 11:00 PM) HERIBERTO
[2020-10-21] MEDS ORDERED: AZIT250T PO (23:11)
--- NOTE | 2020-10-21 23:11 | PHYS DOC ---
Past Medical History Past Medical History: Diabetes-Type II, Hypertension Past Surgical History: Other Additional Past Surgical Histo: R knee scoped Smoking Status: Former Smoker Alcohol Use: Occasionally Drug Use: None General Adult EDM: Chief Complaint: COUGH HPI: HPI: Patient is a 39 year old male presents with with a chief complaint of sinus congestion cough sputum production since . Patient denies any associated fevers or chills. Patient is vaccinated. Patient is not hypoxic or febrile. Review of Systems: Review of Systems: Review of systems: Constitutional symptoms- No fever, no chills. Eyes- No Discharge, No Visual Loss Respiratory symptoms- No shortness of breath, No wheezing, No Dyspnea on Exertion positive cough Cardiovascular Systems; No chest pain, No Palpitations, No syncope Gastrointestinal symptoms: NO abdominal pain, no nausea, no vomiting or diarrhea. Genitourinary symptoms: No dysuria. Musculoskeletal symptoms: No back pain No extremity pain. NEUROLOGICAL Symptoms: No headache, no generalized weakness; No focal Weakness Skin: No rash. HEENT positive sinus congestion Positive sore throat Heart Score: C/O Chest Pain: N/A Risk Factors: Risk Factors: DM, Current or recent (<one month) smoker, HTN, HLP, family history of CAD, obesity. Risk Scores: Score 0 - 3: 2.5% MACE over next 6 weeks - Discharge Home Score 4 - 6: 20.3% MACE over next 6 weeks - Admit for Clinical Observation Score 7 - 10: 72.7% MACE over next 6 weeks - Early Invasive Strategies Allergies: Allergies: Allergies Coded Allergies Type Severity Reaction Last Updated Verified No Known Drug Allergies 03/15/14 No Physical Exam: PE: Constitutional: Well developed, well nourished, no acute distress, non-toxic appearance. [] HENT: Normocephalic, atraumatic, bilateral external ears normal, oropharynx moist, no oral exudates, nose normal. [Maxillary sinus pressure pharyngeal erythema] Eyes: PERRLA, EOMI, conjunctiva normal, no discharge. [] Neck: Normal range of motion, no tenderness, supple, no stridor. [] Cardiovascular:Heart rate regular rhythm, no murmur [] Lungs & Thorax: Bilateral breath sounds clear to auscultation [] Abdomen: Bowel sounds normal, soft, no tenderness, no masses, no pulsatile masses. [] Skin: Warm, dry, no erythema, no rash. [] Back: No tenderness, no CVA tenderness. [] Extremities: No tenderness, no cyanosis, no clubbing, ROM intact, no edema. [] Neurologic: Alert and oriented X 3, normal motor function, normal sensory function, no focal deficits noted. [] Psychologic: Affect normal, judgement normal, mood normal. [] Current Patient Data: Vital Signs: Vital Signs Date Time Temp Pulse Resp B/P (MAP) Pulse Ox O2 Delivery O2 Flow Rate FiO2 10/21/20 21:30 99.3 92 18 173/111 (113) 97 Room Air 99.3 EKG: EKG: [] Radiology/Procedures: Radiology/Procedures: [] Impression: Chest x-ray no acute abnormalities Course & Med Decision Making: Course & Med Decision Making Pertinent Labs and Imaging studies reviewed. (See chart for details) [] We will place patient on Zithromax. Dragon Disclaimer: Dragon Disclaimer: This electronic medical record was generated, in whole or in part, using a voice recognition dictation system. Departure Departure Impression: Primary Impression: Upper respiratory infection Disposition: HOME / SELF CARE / HOMELESS Condition: STABLE Referrals: [facility] (PCP) Patient Instructions: Upper Respiratory Infection, Adult Scripts Azithromycin (ZITHROMAX) 250 Mg Tablet 1 PKG PO UD, #6 TAB Prov: SALLY ANDINO DO 10/21/20 SALLY ANDINO DO Oct 21, 2020 23:11
[2020-10-21 23:22] VITALS: BP 144/78
== END 2020-10-21 23:25 | disposition home or self-care (01) ==
LOC: ER 20:50
DX: J06.9 Acute upper respiratory infection, unspecified (principal); I10 Essential (primary) hypertension; E11.9 Type 2 diabetes mellitus without complications; Z87.891 Personal history of nicotine dependence
CPT/HCPCS: 71045; 99283